=== PATIENT | male | born 1960 | race Caucasian/White ===

== ENCOUNTER 2023-07-02 12:56 | Outpatient (CLI) | payer MEDICARE ==
[~2023-07-02 12:56] MED LIST: Iopamidol 370 76% 100 ML VIAL ONE
== END 2023-07-02 12:57 | disposition home or self-care (01) ==
LOC: BICCT 12:56
PROVIDERS: ATTEND Internal Medicine
DX: R91.8 Other nonspecific abnormal finding of lung field (principal); Z95.5 Presence of coronary angioplasty implant and graft; Z95.2 Presence of prosthetic heart valve
CPT/HCPCS: 71260; Q9967

== ENCOUNTER 2024-09-29 10:52 | Outpatient (CLI) | payer MEDICARE | END 2024-09-29 10:53 | disposition home or self-care (01) | LOC: ULT 10:52 | PROVIDERS: ATTEND Nurse Practitioner Family | DX: R59.0 Localized enlarged lymph nodes (principal) | CPT/HCPCS: 76999 ==

== ENCOUNTER 2024-11-09 08:32 | Outpatient (CLI) | payer MEDICARE | END 2024-11-09 08:33 | disposition home or self-care (01) | LOC: BICCT 08:32 | PROVIDERS: ATTEND Nurse Practitioner Family | DX: N63.31 Unspecified lump in axillary tail of the right breast (principal); R22.2 Localized swelling, mass and lump, trunk; D17.21 Benign lipomatous neoplasm of skin and subcutaneous tissue of right arm | CPT/HCPCS: 36415; 71260; 82565 ==